=== PATIENT | male | born 1965 | race Hispanic/Latino ===

== ENCOUNTER 2021-03-15 13:18 | Emergency (ER) | payer SELFPAY ==
--- NOTE | 2021-03-15 14:38 | Emergency Department Report ---
ED Extremity Problem HPI - General Chief complaint: Extremity Problem,Nontraumatic Stated complaint: PAIN IN LEG Time Seen by Provider: 03/15/21 14:24 Source: patient Mode of arrival: Ambulatory Limitations: No Limitations - History of Present Illness Initial comments: 55-year-old male with a past medical history of peripheral artery disease, GERD, testosterone deficiency currently getting testosterone shots and hypertension presents to the ER today with complaints of pain and redness to the medial aspect of his left thigh. Patient states that started about a week ago. He admits that he did do a 3-1/2 mile walk 2 days prior to the onset of pain but otherwise denies any particular injury. He admits that he did recently do a 7- hour drive to [place], but he was having some mild symptoms prior to the onset of the drive. He reports there is some mild warmth to the area. He reports increased pain with walking. He reports no swelling, and he denies any chest pain or shortness of breath with this. He denies any fever or chills. He denies any DVT or PE risk factors. MD Complaint: extremity pain, extremity swelling -: Gradual, week(s) (1) Severity scale (0 -10): 6 - Related Data Previous Rx's Medication Instructions Recorded Last Taken Type Apixaban [Eliquis] 5 mg PO BID #60 tablet 03/15/21 Unknown Rx Apixaban [Eliquis] 10 mg PO BID 7 Days tablet 03/15/21 Unknown Rx Allergies Allergy/AdvReac Type Severity Reaction Status Date / Time No Known Allergies Allergy Unverified 03/15/21 14:17 ED Review of Systems ROS: Stated complaint: PAIN IN LEG Other details as noted in HPI Comment: All other systems reviewed and negative Constitutional: denies: chills, fever Eyes: denies: eye pain, eye discharge, vision change ENT: denies: ear pain, throat pain, dental pain, hearing loss, congestion Respiratory: denies: cough, shortness of breath, SOB with exertion, SOB at rest, wheezing Cardiovascular: denies: chest pain, palpitations, dyspnea on exertion, edema, syncope, paroxysmal nocturnal dyspnea Endocrine: no symptoms reported Gastrointestinal: denies: abdominal pain, nausea, diarrhea, constipation, hematemesis, hematochezia Genitourinary: denies: urgency, dysuria Musculoskeletal: arthralgia, myalgia Skin: change in color. denies: rash, lesions Neurological: denies: headache, weakness, numbness, paresthesias, confusion, ab normal gait, vertigo Psychiatric: denies: anxiety, depression, auditory hallucinations, visual hallucinations, homicidal thoughts, suicidal thoughts Hematological/Lymphatic: denies: easy bleeding, easy bruising ED Past Medical Hx - Past Medical History Previous Medical History?: Yes Hx Hypertension: Yes - Surgical History Past Surgical History?: No - Medications Home Medications: Home Medications Medication Instructions Recorded Confirmed Last Taken Type Apixaban [Eliquis] 5 mg PO BID #60 tablet 03/15/21 Unknown Rx Apixaban [Eliquis] 10 mg PO BID 7 Days tablet 03/15/21 Unknown Rx ED Physical Exam - General Limitations: No Limitations General appearance: alert, in no apparent distress - Head Head exam: Present: atraumatic, normocephalic, normal inspection - Eye Eye exam: Present: normal appearance, PERRL, EOMI Pupils: Present: normal accommodation - ENT ENT exam: Present: normal exam, mucous membranes moist - Neck Neck exam: Present: normal inspection, full ROM - Respiratory Respiratory exam: Present: normal lung sounds bilaterally. Absent: respiratory distress, wheezes, rales, rhonchi - Cardiovascular Cardiovascular Exam: Present: regular rate, normal rhythm, normal heart sounds - GI/Abdominal GI/Abdominal exam: Present: soft. Absent: distended, tenderness, guarding - Expanded Lower Extremity Exam Left Upper Leg exam: Present: tenderness (Medial aspect of the left thigh over the area of swelling), swelling (There is a small swollen area noted to the medial aspect of the left thigh, swelling appears to be along the superficial veins in the thigh with exquisite tenderness to palpation), erythema (There is mild erythema noted to the medial aspect of the left thigh, but no streaking.). A bsent: abrasion, laceration, ecchymosis, deformity, crepidus, dislocation Knee exam: Present: normal inspection, full ROM - Neurological Exam Neurological exam: Present: alert, oriented X3, CN II-XII intact, normal gait ED Course Vital Signs 03/15/21 03/15/21 14:19 17:21 Temperature 98.7 F Pulse Rate 113 H 85 Respiratory 18 16 Rate Blood Pressure 128/77 133/74 [Right] O2 Sat by Pulse 97 99 Oximetry ED Medical Decision Making - Lab Data Result diagrams: 03/15/21 15:21 03/15/21 15:21 - Radiology Data Radiology results: report reviewed Patient: JOSÉ MIGUEL MAGANA MR#: [id number] : 1965 Acct:[id number] Age/Sex: 55 / M ADM Date: 03/15/21 Loc: ED Attending Dr: Ordering Physician: PHYLLIS COBIAN Date of Service: 03/15/21 Procedure(s): VL venous duplex LE LT Accession Number(s): [id number] cc: PHYLLIS COBIAN DUPLEX DOPPLER LOWER EXTREMITY VEINS, LEFT INDICATION / CLINICAL INFORMATION: Left thigh pain and redness. TECHNIQUE: Duplex doppler imaging was performed through the veins of the left lower extremity using venous compression and other maneuvers. COMPARISON: None available. FINDINGS: LEFT COMMON FEMORAL VEIN: Negative. LEFT FEMORAL VEIN: Negative. LEFT POPLITEAL VEIN: Negative. LEFT CALF VEINS: Negative. ADDITIONAL FINDINGS: There is occlusive thrombus in the left greater saphenous vein from the level of the knee to approximately 1 cm below its junction with the common femoral vein. IMPRESSION: Occlusive thrombus throughout the left greater saphenous vein in the thigh. Signer Name: Edinson Davis MD Signed: 03/15/2021 3:20 PM Workstation Name: [id number] Transcribed By: RT Dictated By: Edinson Davis MD Electronically Authenticated By: Edinson Davis MD Signed Date/Time: 03/15/21 1520 DD/ 1518 TD/TT: - Medical Decision Making CBC, CMP and PT/INR are reviewed and shows no significant abnormalities. Venous Doppler of his left lower leg positive for Occlusive thrombus throughout the left greater saphenous vein in the thigh. Discussed case with Dr. Crabtree who also saw and evaluated patient, see his note for further details -- based on uptodate given the location within 3 cm of femoral vein it is recommended that patient be started on anticoagulants for 3 months. Patient will be started on Eliquis, was also recommended that he follow-up with single resource boss and vascular surgeon. Recommend Tylenol as needed for pain. Patient currently resting comfortably, is not toxic or ill-appearing and currently is not in any acute distress. Repeat vital signs shows improvement of his heart rate. Patient currently has no chest pain or shortness of breath. Patient is neurologically intact with a normal gait in the ER. Patient expressed understanding of all instructions and agree with plan. Patient was stable at time of discharge. Critical care attestation.: If time is entered above; I have spent that time in minutes in the direct care of this critically ill patient, excluding procedure time. ED Disposition Clinical Impression: Thrombosis of left saphenous vein Disposition: TO HOME OR SELFCARE Is pt being admited?: No Does the pt Need Aspirin: No Condition: Stable Instructions: Thrombophlebitis, Deep Vein Thrombosis, Venous Thromboembolism Prevention Additional Instructions: I recommend that you take the Eliquis as prescribed. You can take Tylenol as needed to help with pain. You can continue physical activity as tolerated but I recommend no prolonged immobilization. If your job requires prolonged sitting, or you have to travel by bus, plane or car, recommend that you either stand up and walk every 1-2 hours. I recommend that you follow-up with your vascular surgeon and single resource boss which were provided on your discharge instructions. I also recommend that you follow-up with your primary care doctor in the next 2 to 3 days. Return to the ER if you start having any shortness of breath, dizziness, chest pain, syncope as the symptoms could be concerning for a blood clot in your lungs. Prescriptions: Apixaban [Eliquis] 10 mg PO BID 7 Days tablet Apixaban [Eliquis] 5 mg PO BID #60 tablet Referrals: ELIZABETH WRIGHT MD [Primary Care Provider] - 3-5 Days SANDRINE OLIVEROS MD [Staff Physician] - 3-5 Days ELIAS CLARK MD [Staff Physician] - 3-5 Days Forms: Work/School Release Form(ED) Time of Disposition: 17:12
--- NOTE | 2021-03-15 15:25 | Vascular Lab Report ---
DUPLEX DOPPLER LOWER EXTREMITY VEINS, LEFT INDICATION / CLINICAL INFORMATION: Left thigh pain and redness. TECHNIQUE: Duplex doppler imaging was performed through the veins of the left lower extremity using venous compr ession and other maneuvers. COMPARISON: None available. FINDINGS: LEFT COMMON FEMORAL VEIN: Negative. LEFT FEMORAL VEIN: Negative. LEFT POPLITEAL VEIN: Negative. LEFT CALF VEINS: Negative. ADDITIONAL FINDINGS: There is occlusive thrombus in the left greater saphenous vein from the level of the knee to approximately 1 cm below its junction with the common femoral vein. IMPRESSION: Occlusive thrombus throughout the left greater saphenous vein in the thigh. Signer Name: Edinson Davis MD Signed: 03/15/2021 3:20 PM Workstation Name: [id number]
[2021-03-15 15:57] LABS: Basophils # (Auto) 0.2 K/mm3 (0.0-0.1); Basophils % (Auto) 1.9 % (0.0-1.8); Eosinophils # (Auto) 0.1 K/mm3 (0.0-0.4); Eosinophils % (Auto) 0.7 % (0.0-4.3); Hematocrit 47.4 % (35.5-45.6); Hemoglobin 16.2 gm/dl (11.8-15.2); Lymphocytes # (Auto) 0.7 K/mm3 (1.2-5.4); Lymphocytes % (Auto) 5.8 % (13.4-35.0); Mean Corpuscular HGB Conc 34 % (32-34); Mean Corpuscular Volume 97 fl (84-94); Monocytes # (Auto) 1.1 K/mm3 (0.0-0.8); Monocytes % (Auto) 9.7 % (0.0-7.3); Platelet Count 212 K/mm3 (140-440)
[2021-03-15 16:09] LABS: Alanine Aminotransferase 27 units/L (7-56); Albumin 3.4 g/dL (3.9-5); BUN/Creatinine Ratio 13; Blood Urea Nitrogen 13 mg/dL (9-20); Hemolysis Index 69
[2021-03-15 16:29] LABS: INR 0.89 (0.87-1.13)
[2021-03-15 16:30] LABS: Partial Thromboplastin Time 24.3 Sec. (24.2-36.6)
--- NOTE | 2021-03-15 17:03 | Event Note ---
Date of service: 03/15/21 Face to Face: The patient was evaluated in the emergency department for symptoms described in the history of present illness. He/she was evaluated in the context of the global COVID-19 pandemic, which necessitated consideration that the patient might be at risk for infection with the virus that causes COVID-19. Institutional protocols and algorithms that pertain to the evaluation of patients at risk for COVID-19 are in a state of rapid change based on information released by regulatory bodies including the CDC and federal and state organizations. These policies and algorithms were followed during the patient's care in the emergency department. Please note that these policies, procedures and recommendations changed on a rapid basis. Patient is a 55-year-old gentleman, coming into the ER today with a complaint of left proximal medial thigh redness, pain and swelling. Reports recent 7-hour trip to [place], but feels like this pain and discomfort preceded this trip. He is found to have an occlusive thrombus throughout the left greater saphenous vein in the thigh. Up-to-date recommendations stipulate 3 months of complete anticoagulation. The patient takes testosterone, and a number of antihypertensive medications. He denies headache, neck pain, chest pain, abdominal pain, shortness of breath, hematemesis and bright red blood per rectum. He denies personal/family history of DVT/pulmonary embolism. He denies hematemesis and bright red blood per rectum. He reports that a recent colonoscopy within the past 7 years was unremarkable, has not had prostate screening yet. Extensive discussion had with patient regarding risks and benefits for recommendation of initiating systemic anticoagulation. He is amenable to initiating systemic anticoagulation. He has a vascular surgeon that he is seen in the past for his chronic PAD, for which he wears compression stockings. Presumed tachycardia resolves, he states he is reliable to follow-up with outpatient hematology, such as Dr. Jacques, or Dr. Guadarrama and an outpatient vascular surgeon. He states he is reliable to return to the emergency room should he develop any new, worsened or different symptoms. He denies additional injuries and complaints. All questions answered. Return precautions are reviewed. [facility] [address] [place] [address] Vascular Lab Report Signed Patient: JOSÉ MIGUEL MAGANA MR#: [id number] : 1965 Acct:[id number] Age/Sex: 55 / M ADM Date: 03/15/21 Loc: ED Attending Dr: Ordering Physician: PHYLLIS COBIAN Date of Service: 03/15/21 Procedure(s): VL venous duplex LE LT Accession Number(s): [id number] cc: PHYLLIS COBIAN DUPLEX DOPPLER LOWER EXTREMITY VEINS, LEFT INDICATION / CLINICAL INFORMATION: Left thigh pain and redness. TECHNIQUE: Duplex doppler imaging was performed through the veins of the left lower extremity using venous compression and other maneuvers. COMPARISON: None available. FINDINGS: LEFT COMMON FEMORAL VEIN: Negative. LEFT FEMORAL VEIN: Negative. LEFT POPLITEAL VEIN: Negative. LEFT CALF VEINS: Negative. ADDITIONAL FINDINGS: There is occlusive thrombus in the left greater saphenous vein from the level of the knee to approximately 1 cm below its junction with the common femoral vein. IMPRESSION: Occlusive thrombus throughout the left greater saphenous vein in the thigh. Signer Name: Edinson Davis MD Signed: 03/15/2021 3:20 PM Workstation Name: [id number] Transcribed By: RT Dictated By: Edinson Davis MD Electronically Authenticated By: Edinson Davis MD Signed Date/Time: 03/15/21 1520 DD/ 1518 Vital Signs 03/15/21 14:19 Temperature 98.7 F Pulse Rate 113 H Respiratory 18 Rate Blood Pressure 128/77 [Right] O2 Sat by Pulse 97 Oximetry Lab Results 03/15/21 03/15/21 03/15/21 Range/Units 15:21 15:21 16:08 WBC 11.8 H (4.5-11.0) K/mm3 RBC 4.90 (3.65-5.03) M/mm3 Hgb 16.2 H (11.8-15.2) gm/dl Hct 47.4 H (35.5-45.6) % MCV 97 H (84-94) fl MCH 33 H (28-32) pg MCHC 34 (32-34) % RDW 14.0 (13.2-15.2) % Plt Count 212 (140-440) K/mm3 Lymph % (Auto) 5.8 L (13.4-35.0) % [place] % (Auto) 9.7 H (0.0-7.3) % Eos % (Auto) 0.7 (0.0-4.3) % Baso % (Auto) 1.9 H (0.0-1.8) % Lymph # (Auto) 0.7 L (1.2-5.4) K/mm3 [place] # (Auto) 1.1 H (0.0-0.8) K/mm3 Eos # (Auto) 0.1 (0.0-0.4) K/mm3 Baso # (Auto) 0.2 H (0.0-0.1) K/mm3 Seg Neutrophils % 81.9 H (40.0-70.0) % Seg Neutrophils # 9.6 H (1.8-7.7) K/mm3 PT 12.5 (12.2-14.9) Sec. INR 0.89 (0.87-1.13) APTT 24.3 (24.2-36.6) Sec. Sodium 134 L (137-145) mmol/L Potassium 4.1 (3.6-5.0) mmol/L Chloride 97.7 L (98-107) mmol/L Carbon Dioxide 25 (22-30) mmol/L Anion Gap 15 mmol/L BUN 13 (9-20) mg/dL Creatinine 1.0 (0.8-1.3) mg/dL Estimated GFR > 60 ml/min BUN/Creatinine Ratio 13 % Glucose 83 (75-100) mg/dL Calcium 8.0 L (8.4-10.2) mg/dL Total Bilirubin 0.90 (0.1-1.2) mg/dL AST 31 (5-40) units/L ALT 27 (7-56) units/L Alkaline Phosphatase 119 (35-129) units/L Total Protein 6.8 (6.3-8.2) g/dL Albumin 3.4 L (3.9-5) g/dL Albumin/Globulin Ratio 1.0 %
[2021-03-15] MEDS ORDERED: APIXABAN 5 MG TAB PO STA (17:20)
[2021-03-15 17:23] VITALS: BP 133/74
== END 2021-03-15 17:38 | disposition home or self-care (01) ==
LOC: ED 13:18
DX: I82.812 Embolism and thrombosis of superficial veins of left lower extremity (principal); I10 Essential (primary) hypertension; K21.9 Gastro-esophageal reflux disease without esophagitis; I73.9 Peripheral vascular disease, unspecified; Z79.899 Other long term (current) drug therapy
CPT/HCPCS: 36415; 80053; 85025; 85610; 85730